=== PATIENT | male | born 1955 | race African-American/Black ===

== ENCOUNTER 2018-02-28 12:04 | Emergency (ER) | payer OTHER ==
[~2018-02-28] VITALS: Ht 167.6 cm; Wt 72.0 kg
[2018-02-28] MEDS ORDERED: ONDANSETRON HCL 4MG/2ML INJ IV STA (13:05)
[2018-02-28] MEDS ORDERED: SODIUM CHLORIDE 0.9% 1,000 ML IV ONE (13:05)
[2018-02-28] MEDS ORDERED: MECLIZINE 25MG TABLET PO ONE (13:15)
[2018-02-28 14:22] LABS: CHLORIDE 102 mEq/L (98-107)
[2018-02-28 14:34] LABS: BASOPHILS % 0.4 % (0.0-2.0); EOSINOPHILS % 0.4 % (0.0-5.0); HEMATOCRIT. 41.2 % (42.0-52.0); HEMOGLOBIN. 13.7 g/dL (14.0-18.0); MEAN CORPUSCULAR VOLUME 84.4 fL (80.0-94.0); MEAN PLATELET VOLUME 7.7 fl (7.4-10.4); MONOCYTES % 4.5 % (2.0-8.0); NEUTROPHILS % 75.7 % (40.0-76.0); PLATELET 292 x1000/uL (130-400); RED BLOOD CELL COUNT 4.89 mill/uL (4.7-6.1); RED CELL DISTRIBUTION WIDTH 13.8 % (11.6-14.6)
[2018-02-28 16:00] VITALS: BP 133/88
== END 2018-02-28 16:05 | disposition home or self-care (01) ==
LOC: ER 12:25
DX: H81.10 Benign paroxysmal vertigo, unspecified ear (principal); I45.10 Unspecified right bundle-branch block; F14.10 Cocaine abuse, uncomplicated
CPT/HCPCS: 36415; 80053; 85025; 93005; 96361; 96374; 99284; J2405; J7030; J8597

== ENCOUNTER 2018-07-13 13:05 | Emergency (ER) | payer OTHER ==
[~2018-07-13] VITALS: Ht 167.6 cm; Wt 78.0 kg
[2018-07-13] MEDS ORDERED: ONDANSETRON HCL 4MG/2ML INJ IV STA (16:56)
[2018-07-13] MEDS ORDERED: MORPHINE SULFATE 4 MG/ML CPJ (NOT FOR IM USE) IV STA (16:56)
[2018-07-13] MEDS ORDERED: SODIUM CHLORIDE 0.9% 1,000 ML IV ONE (16:56)
[2018-07-13] MEDS ORDERED: KETOROLAC 30MG/ML VIAL IV STA (16:56)
[2018-07-13 17:29] LABS: BASOPHILS % 1.4 % (0.0-2.0); CHLORIDE 104 mEq/L (98-107); EOSINOPHILS % 3.3 % (0.0-5.0); HEMATOCRIT. 41.9 % (42.0-52.0); HEMOGLOBIN. 13.7 g/dL (14.0-18.0); LYMPHOCYTES % 39.7 % (20.0-50.0); MEAN CORPUSCULAR HEMOGLOBIN 27.5 pg (28.0-32.0); MEAN CORPUSCULAR VOLUME 84.1 fL (80.0-94.0); MEAN PLATELET VOLUME 7.3 fl (7.4-10.4); MONOCYTES % 6.9 % (2.0-8.0); NEUTROPHILS % 48.7 % (40.0-76.0); PARTIAL THROMBOPLASTIN TIME 26.5 sec (23.4-31.0); PLATELET 286 x1000/uL (130-400); PROTHROMBIN TIME 10.1 sec (9.6-11.0); RED BLOOD CELL COUNT 4.98 mill/uL (4.7-6.1); RED CELL DISTRIBUTION WIDTH 14.3 % (11.6-14.6)
[2018-07-13 17:32] LABS: ETHANOL BLOOD < 10 mg/dL
[2018-07-13 18:37] LABS: CLARITY URINE CLEAR (CLEAR); COLOR URINE YELLOW (YELLOW); KETONES URINE NEGATIVE (NEGATIVE); LEUKOCYTE ESTERASE URINE NEGATIVE (NEGATIVE); NITRITE URINE NEGATIVE (NEGATIVE); OCCULT BLOOD URINE NEGATIVE (NEGATIVE); PH URINE 6.5 (4.5-8.0); PROTEIN URINE NEGATIVE (NEGATIVE); SPECIFIC GRAVITY URINE 1.018 (1.005-1.030)
[2018-07-13 18:50] LABS: *AMPHETAMINES SCREEN URINE NEGATIVE (NEGATIVE); *BARBITURATES SCREEN URINE NEGATIVE (NEGATIVE); *BENZODIAZEPINES SCREEN URINE NEGATIVE (NEGATIVE); *COCAINE SCREEN URINE PRESUMTIVE POSITIVE (NEGATIVE); METHADONE URINE SCREEN NEGATIVE (NEGATIVE)
[2018-07-13 18:51] LABS: CANNABINOID URINE SCREEN NEGATIVE (NEGATIVE); OPIATES URINE SCREEN NEGATIVE (NEGATIVE); PHENCYCLIDINE URINE SCREEN NEGATIVE (NEGATIVE)
[2018-07-13 19:22] VITALS: BP 125/76
== END 2018-07-13 19:37 | disposition home or self-care (01) ==
LOC: ER 13:05
DX: E86.0 Dehydration (principal); R10.31 Right lower quadrant pain; F14.10 Cocaine abuse, uncomplicated; I10 Essential (primary) hypertension; F17.210 Nicotine dependence, cigarettes, uncomplicated; F12.10 Cannabis abuse, uncomplicated; Z87.19 Personal history of other diseases of the digestive system
CPT/HCPCS: 36415; 74176; 80053; 80305; 80320; 81003; 83690; 83880; 84484; 85025; 85610; 85730; 96361; 96374; 96375; 99284; 99406; J1885; J2405; J7030; Z7610; J2270; G0480